=== PATIENT | female | born 1975 | race Caucasian/White ===

== ENCOUNTER 2021-02-23 09:02 | Day surgery (SDCO) | payer OTHER ==
[~2021-02-23] VITALS: Ht 165.1 cm; Wt 92.5 kg
[~2021-02-23 09:02] MED LIST: NIZORAL CREAM 330 GM TOP; VIT D 3 PO
[2021-02-23 09:32] LABS: HCG (URINE) SCREEN NEGATIVE (NEGATIVE)
[2021-02-23 09:48] LABS: HCT 41.5 % (37.0-47.0); HGB 13.4 g/dl (12.5-16.0); MCH 29.1 pg (25.0-31.0); MCHC 32.3 g/dL (32.0-36.0); MCV 90.2 fL (78.0-100.0); MPV 11.6 fL (6.0-9.5); RBC 4.6 M/uL (4.20-5.40); RDW 14.1 % (11.5-14.0)
[2021-02-23 10:07] LABS: ALBUMIN 3.4 g/dL (3.4-5.0); BILIRUBIN - TOTAL 0.5 mg/dL (0.2-1.0); BUN/CREAT RATIO (CALC) 20.6 RATIO; CREATININE 0.63 mg/dL (0.51-0.95); GLOBULIN (CALCULATION) 3.4 g/dL; POTASSIUM 3.9 mmol/L (3.5-5.1); TOTAL PROTEIN 6.8 g/dL (6.4-8.2)
[2021-02-23] MEDS ORDERED: PERCOCET 5-3251 EACH PO (11:28)
[2021-02-23] MEDS ORDERED: ZOFRAN4 M1 PO (11:28)
[2021-02-23] MEDS ORDERED: IBUPROFEN800 M1 PO (11:28)
--- NOTE | 2021-02-23 16:49 | NUR ---
PATIENT TO UNIT AT 1608. TRANSFERRED TO OB BED WITH OVERLAY. PATIENT UNDERSTANDS INSTRUCTIONS, IS VERY GROGGY STILL. 95% O2 SAT ON 1L OF OXYGEN
--- NOTE | 2021-02-23 16:53 | NUR ---
PATIENT ON LR AT 125 ML/HR. ICE CHIPS AND WATER PROVIDED TO PATIENT. POC EXPLAINED TO PATIENT. LISSET ANY PAIN AT THIS TIME. SO AT BEDSIDE WITH PATIENT.
[2021-02-24 07:15] LABS: HCT 35.5 % (37.0-47.0); HGB 10.9 g/dl (12.5-16.0); MCH 28.3 pg (25.0-31.0); MCHC 30.7 g/dL (32.0-36.0); MCV 92.2 fL (78.0-100.0); MPV 12.6 fL (6.0-9.5); RBC 3.85 M/uL (4.20-5.40); RDW 14.4 % (11.5-14.0)
== END 2021-02-24 09:50 | disposition home or self-care (01) ==
LOC: FAS 09:02 → FOB 15:54 → FAS 15:55 → FOB 15:56
PROVIDERS: ADMIT Obstetrics & Gynecology
DX: N80.0 Endometriosis of uterus (principal); N81.4 Uterovaginal prolapse, unspecified; N73.6 Female pelvic peritoneal adhesions (postinfective); N92.0 Excessive and frequent menstruation with regular cycle; K21.9 Gastro-esophageal reflux disease without esophagitis; I10 Essential (primary) hypertension; E78.5 Hyperlipidemia, unspecified; E66.9 Obesity, unspecified; Z88.0 Allergy status to penicillin; Z87.891 Personal history of nicotine dependence; Z68.34 Body mass index [BMI] 34.0-34.9, adult; R00.0 Tachycardia, unspecified; Z30.432 Encounter for removal of intrauterine contraceptive device; Z20.822 Contact with and (suspected) exposure to COVID-19
CPT/HCPCS: 36415; 80053; 84703; 86850; 86900; 86901; 93005; G0378; J1100; J1170; J1885; J1956; J2250; J2405; J2704; J3010; J7120

== ENCOUNTER 2021-03-05 12:54 | Emergency (ER) | payer OTHER ==
[~2021-03-05 12:54] MED LIST changes: +IBUPROFEN800 M1 PO; +PERCOCET 5-3251 EACH PO; +ZOFRAN4 M1 PO
[2021-03-05 14:33] LABS: BILIRUBIN NEGATIVE (NEGATIVE); BLOOD NEGATIVE Ery/uL (NEGATIVE); CLARITY CLEAR (CLEAR); COLOR YELLOW (YELLOW); GLUCOSE (U) NORMAL (NORMAL); LEUKOCYTES TRACE Leu/uL (NEGATIVE); NITRITE NEGATIVE (NEGATIVE); PROTEIN NEGATIVE (NEGATIVE); UROBILINOGEN 0.2 mg/dL (0.2-1.0)
[2021-03-05 14:41] LABS: BASOPHIL 0.6 % (0-2); EOSINOPHIL 1.1 % (0-5); HGB 11.8 g/dl (12.5-16.0); LYMPHOCYTE 11.9 % (15-48); MCH 28.5 pg (25.0-31.0); MCHC 31.1 g/dL (32.0-36.0); MCV 91.8 fL (78.0-100.0); MONOCYTE 6.7 % (0-12); MPV 11.5 fL (6.0-9.5); NEUTROPHIL 79.3 % (41-80); NRBC 0; PLT 389 K/uL (150-400); RBC 4.14 M/uL (4.20-5.40); RDW 13.9 % (11.5-14.0); WBC 13.9 K/uL (4.0-10.5)
[2021-03-05 14:50] LABS: BACTERIA 1+
[2021-03-05 14:57] LABS: BUN/CREAT RATIO (CALC) 16.2 RATIO; CREATININE 0.68 mg/dL (0.51-0.95); POTASSIUM 4.1 mmol/L (3.5-5.1)
[2021-03-05 15:55] LABS: LACTIC ACID 0.5 mmol/L (0.4-1.9)
[2021-03-05] MEDS ORDERED: MACROBID100 MG PO (17:31)
[2021-03-05] MEDS ORDERED: MEDROL 4MG DOSEP4 MG PO (17:33)
[2021-03-05] MEDS ORDERED: CYCLOBENZAPRINE10 MG PO (17:33)
== END 2021-03-05 17:45 | disposition home or self-care (01) ==
LOC: FER 12:54
PROVIDERS: Emergency Medicine; Nurse Practitioner Family
DX: N39.0 Urinary tract infection, site not specified (principal); I10 Essential (primary) hypertension
CPT/HCPCS: 36415; 72100; 80048; 81001; 83605; 84145; 85025; 87040; 87088; 96372; J1100; J1885; J7030; Q9967